=== PATIENT | male | born 1940 ===

== ENCOUNTER → 2018-08-04 20:58 | Outpatient (REF) | payer OTHER, MEDICARE, SELFPAY ==
[2018-08-12 14:13] LABS: PSA Total 9.32 ng/mL (< 4.01); Reflex Free PSA 1.4 ng/mL
== END ==
LOC: LAB 20:58
PROVIDERS: Visit Provider Naturopath
DX: R97.20 Elevated prostate specific antigen [PSA] (principal)
CPT/HCPCS: 36415; 84153; 84154